=== PATIENT | female | born 1960 | race African-American/Black ===

== ENCOUNTER 2023-01-06 19:22 | Emergency (ER) | payer BC, OTHER ==
[~2023-01-06] VITALS: Ht 170.2 cm; Wt 145.1 kg
[2023-01-06 22:00] VITALS: BP 148/69
== END 2023-01-06 22:00 | disposition home or self-care (01) ==
LOC: FSED 19:30
DX: M54.42 Lumbago with sciatica, left side (principal); G89.29 Other chronic pain; V53.5XXA Driver of pick-up truck or van injured in collision with car, pick-up truck or van in traffic accident, initial encounter; Y92.488 Other paved roadways as the place of occurrence of the external cause; I10 Essential (primary) hypertension; F41.9 Anxiety disorder, unspecified; E66.01 Morbid (severe) obesity due to excess calories
CPT/HCPCS: 72131; 99283

== ENCOUNTER → 2025-08-11 | Day surgery (SDC) | payer MEDICARE, OTHER ==
[~2025-08-11] MED LIST: AMOXICILLIN500 MG PO; BIOTIN800 MCG PO; CALCIUM CARBON500 MG PO; CANDESARTAN-HC1 EAC2 PO; CLARITIN10 MG PO; FEROSUL325 MG PO; FLONASE ALLERG9.9 ML INH; LEXAPRO10 MG PO; LIDOCAINE HCL 2% LOCAL 20 ML VIAL ONE; MELOXICAM7.5 MG PO; METOPROLOL SUCC50 MG PO; MIDAZOLAM HCL 2 MG/2 ML VIAL ONE; PROPOFOL IV EMULSION 10 MG/ML 20 ML VIAL ONE; ULTRAM 50MG50 MG PO; VITAMIN B-121000 MCG PO; VITAMIN C1000 MG PO; VITAMIN D3 MA125 MCG PO; XANAX1 MG PO; [UNRECOGNIZED DRUG - OTHER] PO
[2025-08-11] MEDS: LACTATED RINGER'S 1,000 ML ONE (10:47)
[2025-08-11 14:02] VITALS: TEMP 97.2
[2025-08-11 14:15] VITALS: BP 134/85; PULSE 83; RESP 16; O2SAT 95
== END | disposition home or self-care (01) ==
LOC: OR 09:59
PROVIDERS: ATTEND Internal Medicine Gastroenterology
DX: Z12.11 Encounter for screening for malignant neoplasm of colon (principal); D12.4 Benign neoplasm of descending colon; K29.50 Unspecified chronic gastritis without bleeding; K22.89 Other specified disease of esophagus; K21.9 Gastro-esophageal reflux disease without esophagitis; K44.9 Diaphragmatic hernia without obstruction or gangrene; K57.30 Diverticulosis of large intestine without perforation or abscess without bleeding; K64.8 Other hemorrhoids; I10 Essential (primary) hypertension; E66.01 Morbid (severe) obesity due to excess calories; F41.9 Anxiety disorder, unspecified; Z01.810 Encounter for preprocedural cardiovascular examination; Z79.1 Long term (current) use of non-steroidal anti-inflammatories (NSAID); Z79.899 Other long term (current) drug therapy
CPT/HCPCS: 43239; 45380; 45384; 88305; 93005; J2003; J2250; J2704; J7121; 45378